=== PATIENT | female | born 1970 | race African-American/Black ===

== ENCOUNTER 2021-07-20 16:22 | Emergency (ER) | payer MEDICAID ==
[~2021-07-20] VITALS: Ht 167.6 cm; Wt 78.0 kg
[2021-07-20 18:58] LABS: BASOPHILS % 0.4 % (0.0-2.0); EOSINOPHILS % 0.5 % (0.0-5.0); HEMATOCRIT. 33.8 % (36.0-48.0); HEMOGLOBIN. 11.6 g/dL (12.0-16.0); LYMPHOCYTES % 17.8 % (20.0-50.0); MEAN CORPUSCULAR HEMOGLOBIN 37.2 pg (28.0-32.0); MEAN CORPUSCULAR VOLUME 108.2 fL (81.0-99.0); MEAN PLATELET VOLUME 8.2 fl (7.4-10.4); MONOCYTES % 6.2 % (2.0-8.0); NEUTROPHILS % 75.1 % (40.0-76.0); PLATELET 166 x1000/uL (130-400); RED BLOOD CELL COUNT 3.12 mill/uL (4.2-5.4); RED CELL DISTRIBUTION WIDTH 14.4 % (11.6-14.6)
[2021-07-20 18:59] LABS: CHLORIDE 108 mEq/L (98-107)
[2021-07-20 19:08] LABS: HCG SCREEN NEGATIVE
[2021-07-20 20:00] VITALS: BP 120/76
== END 2021-07-20 20:00 | disposition home or self-care (01) ==
LOC: EDSEX 16:22 → ER 16:22
DX: R55 Syncope and collapse (principal); R42 Dizziness and giddiness; R11.10 Vomiting, unspecified; I10 Essential (primary) hypertension
CPT/HCPCS: 36415; 71045; 80053; 83605; 83880; 84484; 84703; 85025; 93005; 99285